=== PATIENT | female | born 1945 | race Caucasian/White ===

== ENCOUNTER → 2016-08-14 | Outpatient (CLI) | payer OTHER ==
[~2016-08-14] MED LIST: ASPIR 8181 MG PO; ATORVASTATIN CA40 MG PO; CALCIUM 500 +1 EAC5 PO; CENTRUM SILVER1 EAC4 PO; GLUCOSAMINE CH1 EAC2 PO; NORVASC5 MG PO; PLAVIX 75 MG TA75 MG PO; SPIRIVA INH; VENTOLIN HFA 1818 GM INH; ZETIA10 MG PO
[2016-08-14 09:27] LABS: CREATININE 0.8 mg/dL (0.6-1.0)
== END ==
LOC: CAT 08:36
PROVIDERS: Nuclear Medicine Nuclear Cardiology
DX: I71.4 Abdominal aortic aneurysm, without rupture (principal); Z95.828 Presence of other vascular implants and grafts

== ENCOUNTER 2017-04-08 14:06 | Emergency (ER) | payer OTHER ==
[~2017-04-08] VITALS: Ht 172.7 cm; Wt 57.1 kg
--- NOTE | ~2017-04-08 | EKG ---
[address] [place] [address] ELECTROCARDIOGRAM REPORT Name: TED HARDY Room #: [facility]#: [id number] Admission: 04/08/17 Attend Phys: Discharge: Date of : 49 Report #: [id number] THIS REPORT FOR: //name// [facility] ED Test Date: 2017-04-08 Test Time: 14:30:52 Pat Name: TED HARDY Department: Room: Gender: Tire Fixer: RADHACLIFF : 1945 Requested By: Neftali Conner Order Number: [id number] MD: Tony Huddleston Measurements Intervals [place] Rate: 80 P: 78 RI: 178 QRS: 37 QRSD: 91 T: 40 QT: 390 QTc: 450 Interpretive Statements Sinus rhythm Left atrial enlargement Low voltage, extremity leads No previous ECG available for comparison Electronically Signed On 04-08-2017 16:07:53 DANCE DIRECTOR by Tony Huddleston [email or web address] <ELECTRONICALLY SIGNED> By: oTny Huddleston MD, [facility] 04/08/17 1607 1430 1430 Tony Huddleston MD, FACC /EPI
[2017-04-08] MEDS ORDERED: ANORO ELLIPTA1 EACH (14:33)
[2017-04-08 15:00] LABS: HEMATOCRIT 40.1 % (37.0-47.0); HEMOGLOBIN 13.7 gm/dL (12.0-15.0); MCH 31.9 pg (26.0-34.0); MCHC 34.2 g/dL (28.0-37.0); MCV 93.3 fL (80.0-100.0); PLATELET COUNT 204 thou/uL (150-400); RDW 14.2 % (10.5-14.5); WBC 4.4 thou/uL (4.0-11.0)
[2017-04-08 15:11] LABS: ANION GAP 10 mmol/L (7-16); BUN 14 mg/dL (7-18); CALCIUM 9.3 mg/dL (8.5-10.1); CHLORIDE 96 mmol/L (98-107); CO2 28 mmol/L (21-32); CREATININE 0.8 mg/dL (0.6-1.0); POTASSIUM 3.9 mmol/L (3.5-5.1); SODIUM 134 mmol/L (136-145)
[2017-04-08 15:13] LABS: GLUCOSE 101 mg/dL (74-106)
[2017-04-08 15:18] LABS: ABSOLUTE NEUTROPHILS 2.4 thou/uL (1.4-8.2); ALBUMIN 4.1 g/dL (3.4-5.0); ANISOCYTOSIS 1+; MAGNESIUM 2.1 mg/dL (1.8-2.4); POLYCHROMASIA OCCASIONAL; SGOT 37 U/L (15-37); SGPT 35 U/L (30-65); TOTAL BILIRUBIN 0.4 mg/dL (<0.1-1.0); TOTAL PROTEIN 7.4 g/dL (6.4-8.2); TROPONIN-I < 0.04 ng/mL (<0.06)
[2017-04-08] MEDS ORDERED: PREDNISONE 20 M20 MG PO (15:18)
[2017-04-08] MEDS ORDERED: AMOXICILLIN875 MG PO (15:18)
[2017-04-08] MEDS ORDERED: VENTOLIN HFA 1818 GM INH (15:19)
[2017-04-08 15:42] VITALS: BP 115/67
== END 2017-04-08 16:24 | disposition home or self-care (01) ==
LOC: ER 14:06
PROVIDERS: Emergency Medicine
DX: J06.9 Acute upper respiratory infection, unspecified (principal); J44.1 Chronic obstructive pulmonary disease with (acute) exacerbation; I10 Essential (primary) hypertension; F17.210 Nicotine dependence, cigarettes, uncomplicated; Z88.1 Allergy status to other antibiotic agents; Z88.5 Allergy status to narcotic agent; Z88.8 Allergy status to other drugs, medicaments and biological substances

== ENCOUNTER → 2017-09-21 | Outpatient (CLI) | payer OTHER ==
[~2017-09-21] MED LIST changes: +AMOXICILLIN875 MG PO; +ANORO ELLIPTA1 EACH; +PREDNISONE 20 M20 MG PO
== END ==
LOC: CAT 09:03
DX: J98.11 Atelectasis (principal); J98.4 Other disorders of lung; R91.1 Solitary pulmonary nodule; R05 Cough

== ENCOUNTER → 2018-09-30 | Outpatient (CLI) | payer OTHER | LOC: RAD 09:09 | DX: J44.9 Chronic obstructive pulmonary disease, unspecified (principal); J84.10 Pulmonary fibrosis, unspecified; Z88.8 Allergy status to other drugs, medicaments and biological substances ==

== ENCOUNTER → 2019-04-26 | Outpatient (CLI) | payer OTHER | LOC: SJCVCIMAG 08:23 | DX: I70.203 Unspecified atherosclerosis of native arteries of extremities, bilateral legs (principal); I71.4 Abdominal aortic aneurysm, without rupture; E78.00 Pure hypercholesterolemia, unspecified; J44.9 Chronic obstructive pulmonary disease, unspecified; I10 Essential (primary) hypertension; F17.200 Nicotine dependence, unspecified, uncomplicated; Z79.899 Other long term (current) drug therapy ==

== ENCOUNTER → 2019-09-08 | Outpatient (CLI) | payer OTHER ==
[2019-09-08 13:55] LABS: CREATININE 0.8 mg/dL (0.6-1.0)
== END ==
LOC: CAT 13:02
PROVIDERS: ATTEND Nuclear Medicine Nuclear Cardiology
DX: K76.89 Other specified diseases of liver (principal); I70.8 Atherosclerosis of other arteries; I70.201 Unspecified atherosclerosis of native arteries of extremities, right leg; I71.4 Abdominal aortic aneurysm, without rupture; Z95.828 Presence of other vascular implants and grafts; Z86.79 Personal history of other diseases of the circulatory system

== ENCOUNTER → 2019-09-08 | Outpatient (CLI) | payer OTHER | LOC: SJCVCIMAG 07:43 | PROVIDERS: ATTEND Internal Medicine Cardiovascular Disease | DX: I65.23 Occlusion and stenosis of bilateral carotid arteries (principal); M71.22 Synovial cyst of popliteal space [Baker], left knee; I77.1 Stricture of artery; I71.4 Abdominal aortic aneurysm, without rupture; I73.9 Peripheral vascular disease, unspecified; E78.00 Pure hypercholesterolemia, unspecified; I10 Essential (primary) hypertension; J44.9 Chronic obstructive pulmonary disease, unspecified; Z79.82 Long term (current) use of aspirin; Z79.899 Other long term (current) drug therapy ==

== ENCOUNTER → 2019-09-29 | Outpatient (CLI) | payer OTHER | LOC: RAD 09:44 | PROVIDERS: ATTEND Internal Medicine Pulmonary Disease | DX: J44.9 Chronic obstructive pulmonary disease, unspecified (principal) ==

== ENCOUNTER → 2020-03-27 | Outpatient (CLI) | payer OTHER | LOC: SJCVCIMAG 07:48 | PROVIDERS: ATTEND Internal Medicine Cardiovascular Disease | DX: I70.203 Unspecified atherosclerosis of native arteries of extremities, bilateral legs (principal); I25.10 Atherosclerotic heart disease of native coronary artery without angina pectoris; E78.5 Hyperlipidemia, unspecified; R00.0 Tachycardia, unspecified; E78.00 Pure hypercholesterolemia, unspecified; I77.9 Disorder of arteries and arterioles, unspecified; I71.4 Abdominal aortic aneurysm, without rupture; I10 Essential (primary) hypertension; I42.9 Cardiomyopathy, unspecified; J44.9 Chronic obstructive pulmonary disease, unspecified; F17.210 Nicotine dependence, cigarettes, uncomplicated; Z95.828 Presence of other vascular implants and grafts; Z79.82 Long term (current) use of aspirin; Z79.899 Other long term (current) drug therapy; Z86.79 Personal history of other diseases of the circulatory system ==

== ENCOUNTER → 2020-10-16 | Outpatient (CLI) | payer OTHER | LOC: SJCVCIMAG 08:50 | PROVIDERS: ATTEND Internal Medicine Cardiovascular Disease | DX: I70.203 Unspecified atherosclerosis of native arteries of extremities, bilateral legs (principal); I71.4 Abdominal aortic aneurysm, without rupture; I25.10 Atherosclerotic heart disease of native coronary artery without angina pectoris; I10 Essential (primary) hypertension; E78.00 Pure hypercholesterolemia, unspecified; I77.9 Disorder of arteries and arterioles, unspecified; Z95.828 Presence of other vascular implants and grafts; Z86.79 Personal history of other diseases of the circulatory system; Z79.82 Long term (current) use of aspirin; Z79.899 Other long term (current) drug therapy; F17.210 Nicotine dependence, cigarettes, uncomplicated; Z72.89 Other problems related to lifestyle; Z88.1 Allergy status to other antibiotic agents; Z88.5 Allergy status to narcotic agent; Z95.820 Peripheral vascular angioplasty status with implants and grafts ==

== ENCOUNTER → 2020-10-31 | Outpatient (CLI) | payer OTHER ==
[~2020-10-31] MED LIST changes: +ASA81BEC PO; +IRON325 M1 PO
== END ==
LOC: CAT 11:08
PROVIDERS: ATTEND Internal Medicine Pulmonary Disease
DX: J43.9 Emphysema, unspecified (principal); Z72.0 Tobacco use; F17.210 Nicotine dependence, cigarettes, uncomplicated

== ENCOUNTER → 2020-11-12 | Outpatient (CLI) | payer OTHER | LOC: LAB 12:23 | PROVIDERS: ATTEND Student in an Organized Health Care Education/Training Program | DX: Z20.822 Contact with and (suspected) exposure to COVID-19 (principal) ==

== ENCOUNTER → 2020-11-14 | Outpatient (CLI) | payer OTHER ==
[~2020-11-14] VITALS: Ht 172.7 cm; Wt 56.7 kg
--- NOTE | 2020-11-16 13:48 | P ---
[facility] [place] [address] PROCEDURE REPORT Name: TED HARDY Room #: REG [facility] Tabatha#: [id number] Admission: 11/14/20 Attend Phys: Harjinder Vu Discharge: Date of : 49 Report #: [id number] THIS REPORT FOR: cc: Live Cooper MD, Eric K. MD McElhinney, Christian C. MD ~ cc: Live Cooper MD DATE OF SERVICE: 11/14/2020 PROCEDURE PERFORMED: Upper endoscopy with biopsies. HISTORY OF PRESENT ILLNESS: The patient is a 75-year-old female with a history of anemia. She is on aspirin and Plavix. She denies any obvious bright red blood per rectum or melena. No dysphagia. No history of heartburn. Plan is for EGD and colonoscopy today. The patient reports recent hemoglobin was in the 8.5 range. DESCRIPTION OF PROCEDURE: The risks and benefits of the procedure were explained to the patient. Those risks including but not limited to bleeding, perforation and the risk of sedation. She understood these risks and gave informed consent. Sedation was given using propofol per anesthesia. Next, using a standard Olympus upper endoscope, the scope was placed in the patient's mouth and advanced under direct vision through the esophagus, stomach and into the second portion of the duodenum. The esophagus was normal throughout. The GE junction was normal. Upon entering the stomach, a small hiatal hernia was noted. There was a mild gastritis with several small erosions in the gastric antrum. Biopsies were obtained to rule out H. pylori. The gastric body and fundus were normal. The pylorus was normal and patent. A mild to moderate duodenitis was noted in the duodenal bulb and first portion. A few small clean white based ulcers, 3-4 mm in size were noted. No evidence of bleeding. The second portion of the duodenum was normal. The scope was then withdrawn and the procedure terminated. The patient tolerated the procedure well. IMPRESSION: 1. Mild gastritis with small erosions. 2. A few small duodenal bulb ulcers with duodenitis. 3. Small hiatal hernia. 4. Otherwise, normal upper endoscopy. RECOMMENDATIONS: 1. Await biopsy results. 2. Recommend daily PPI therapy as above findings could potentially cause bleeding and anemia, although there was no bleeding on exam today. 3. We will proceed with colonoscopy next today. [address] [address] PROCEDURE REPORT Name: TED HARDY Room #: REG [facility] [place]#: [id number] Admission: 11/14/20 Attend Phys: Harjinder Vu Discharge: Date of : 49 Report #: [id number] Thank you for allowing me to participate in her care. <ELECTRONICALLY SIGNED> By: Harjinder Méndez MD 11/16/20 1348 1110 2249 Harjinder Méndez MD /antony
--- NOTE | 2020-11-16 13:48 | P ---
[facility] [place] [address] PROCEDURE REPORT Name: TED HARDY Room #: REG [facility] Tabatha#: [id number] Admission: 11/14/20 Attend Phys: Harjinder Vu Discharge: Date of : 49 Report #: [id number] THIS REPORT FOR: cc: Live Cooper MD, Eric K. MD McElhinney, Christian C. MD ~ cc: Live Cooper MD DATE OF SERVICE: 11/14/2020 PROCEDURE PERFORMED: Colonoscopy. HISTORY OF PRESENT ILLNESS: The patient is a 75-year-old female with a history of anemia. Upper endoscopy was just performed showing duodenitis, small ulcers, gastritis, and erosions. No evidence of bleeding. The patient denies any obvious bright red blood per rectum or melena. Her last colonoscopy was in 07/2017 in which a small polyp was removed and multiple diverticula were noted or diverticulosis was noted. Plan is for colonoscopy. DESCRIPTION OF PROCEDURE: The risks and benefits of the procedure were explained to the patient, those risks including but not limited to bleeding, perforation and the risk of sedation. She understood these risks and gave informed consent. Sedation was given using propofol per anesthesia. Next, a digital rectal exam was initially performed, which was normal. Next, using a pediatric Olympus colonoscope, scope was placed in the patient's anus and advanced under direct vision into the distal sigmoid colon, at which point, it was very tortuous and despite multiple attempts, I was not able to advance the scope through this area. At this point, the pediatric colonoscope was removed. An Olympus upper endoscope was used. I was able to advance the scope through this area. Eventually able to make it to the cecum and ileocecal valve, which were normal in appearance. Not all areas of the cecum were completely identified. Of note, on the last colonoscopy 3 years ago, this was well visualized. The overall prep was good. The ascending, transverse, and descending colon were normal. Multiple diverticula were noted in the sigmoid colon. No evidence of inflammation. The rectal mucosa was normal. On retroflexion, no abnormalities were noted. Scope was then withdrawn and the procedure terminated. The patient tolerated the procedure well. IMPRESSION: 1. Sigmoid diverticulosis without evidence of inflammation. 2. Otherwise, normal colonoscopy. RECOMMENDATIONS: 1. Repeat colonoscopy in 10 years. 2. See EGD report for recommendations. [address] [address] PROCEDURE REPORT Name: [facility]ED HARDY [id number] Admission: 11/14/20 Attend Phys: Harjinder Vu Discharge: Date of : 49 Report #: [id number] Thank you for allowing me to participate in her care. <ELECTRONICALLY SIGNED> By: Harjinder Méndez MD 11/16/20 1348 1154 2257 Harjinder Méndez MD /antony
--- NOTE | 2020-11-16 14:07 | PATH ---
[facility] [address] [place] [address] PATHOLOGY RPT PROCEDURE Name: TED CHEW Room #: REG AZAEL Larsen.#: [id number] Admission: 11/14/20 Date of : 49 Discharge: Report #: [id number] Path Case #: [id number] [facility] Accession Number: [id number] . 01 Material submitted: . stomach - GASTRIC BIOPSY RULE OUT H. PYLORI. Modifiers: GASTRIC . 01 Clinical history: . DTS/EDG, COLONOSCOPY/ IRON DEF ANEMIA GASTRITIS, DUODENAL ULCERS . 02 Diagnosis: Gastric mucosa rule out H. pylori, endoscopic biopsy: - Mild reactive gastropathy with intestinal metaplasia. - Negative for atrophy. - Negative for Helicobacter pylori (properly-controlled immunohistochemical stain performed). . (IUV:mml; 11/16/2020) QLM 11/16/2020 1225 Local . 02 Electronically signed: . Jessica Nobles MD, Pathologist NPI- [id number] . 01 Gross description: . The specimen is received in formalin, labeled "Ted Chew, gastric biopsy". Received are two segments of pale shaw tissue measuring 0.3 and 0.4 cm in maximum dimensions. The specimen is submitted entirely in cassette A1. (CAA; 11/15/2020) QAC/QAC 11/15/2020 1305 Local . 02 Pathologist provided ICD-10: K31.9 . 02 CPT . 470373, T52486 Specimen Comment: A courtesy copy of this report has been sent to [phone] Specimen Comment: [phone] Specimen Comment: Report sent to / DR ESTEBAN Performed at: [address] [id number] MD Filippo Ramirez MD Phone: [phone] Performed at: [address] [address] PATHOLOGY RPT PROCEDURE Name: TED CHEW Room #: REG [facility].#: [id number] Admission: 11/14/20 Date of : 49 Discharge: Report #: [id number] Path Case #: [id number] [address] [id number] MD Jessica Nobles MD Phone: [phone]
== END | disposition home or self-care (01) ==
LOC: GI 09:07
PROVIDERS: ATTEND Specialist
DX: D64.9 Anemia, unspecified (principal); K57.30 Diverticulosis of large intestine without perforation or abscess without bleeding; K31.9 Disease of stomach and duodenum, unspecified; K44.9 Diaphragmatic hernia without obstruction or gangrene; K29.70 Gastritis, unspecified, without bleeding; K29.80 Duodenitis without bleeding; I10 Essential (primary) hypertension; I73.9 Peripheral vascular disease, unspecified; J44.9 Chronic obstructive pulmonary disease, unspecified; F17.210 Nicotine dependence, cigarettes, uncomplicated; Z86.010 Personal history of colon polyps; Z87.19 Personal history of other diseases of the digestive system; Z85.828 Personal history of other malignant neoplasm of skin
CPT/HCPCS: 62110; 62900